=== PATIENT | male | born 1960 | race Asian ===

== ENCOUNTER 2023-05-07 08:08 | Outpatient (CLI) | payer BC ==
[2023-05-07] MEDS ORDERED: Iopamidol 300 61% 100 ML VIAL FS ONE (13:26)
== END 2023-05-07 08:09 | disposition home or self-care (01) ==
LOC: CSHCT 08:08
PROVIDERS: ATTEND Internal Medicine Gastroenterology
DX: R10.9 Unspecified abdominal pain (principal); K21.9 Gastro-esophageal reflux disease without esophagitis; Z86.010 Personal history of colon polyps
CPT/HCPCS: 74177; Q9967